=== PATIENT | male | born 1955 | race Caucasian/White ===

== ENCOUNTER 2016-04-17 12:14 | Outpatient (CLI) | payer OTHER ==
--- NOTE | 2016-04-17 13:35 | DIAGNOSTIC IMAGING REPORT ---
PROCEDURE: XR SHOULDER INJECTION (PRE MR) INDICATION: Right shoulder pain. Possible adhesive capsulitis. TECHNIQUE: The patient was advised of the usual risks and complications including infection, bleeding and allergy. Supine RPO position. Following sterile preparation and 1% lidocaine anesthetic, fluoroscopic guidance (2.0 minutes, 382.79 mGy) was utilized to place a 22-gauge spinal needle into the ventral right glenohumeral joint. A 10.1 mL solution (2.5 mL Isovue 200, 2.5 mL 1% lidocaine, 2.5 mL 0.5% Marcaine, 2.5 mL normal saline, 0.1 mL gadolinium) was infused. Subsequently, 2 mL 40 mg/mL Kenalog was infused and the needle was withdrawn. COMPARISON: Comparison is made to radiographs from [facility] on 03/30/2016. FINDINGS: Five AP views in neutral, internal and external rotation. Confirmation of intraarticular injection. There is mild to moderate degenerative changes of the right glenohumeral joint and right acromioclavicular joint. Findings suggest calcific tendonitis of the rotator cuff. Arthrogram is normal. No evidence of rotator cuff tear The patient tolerated the procedure reasonably well and was transferred to MRI in satisfactory condition with instructions to resume routine activity the following day, and to call for any untoward symptoms (increasing pain/swelling). IMPRESSION: 1. Successful fluoroscopically guided diagnostic/therapeutic injection of the right glenohumeral joint (pre MRI). 2. 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 3. 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 4. Negative arthrogram of the right shoulder. 5. MR arthrography is pending.
--- NOTE | 2016-04-19 17:59 | DIAGNOSTIC IMAGING REPORT ---
PROCEDURE: MR UPPER EXT JOINT W/CONT-RT INDICATION: ADHESIVE CAPSULITIS RT SHOULDER TECHNIQUE: Intraarticular contrast/gadolinium injected earlier in the day. PD, FAT-SAT PD, and FAT-SAT T1 sagittal oblique images. PD, FAT-SAT PD, and FAT-SAT T1 coronal oblique images. T1, FAT-SAT T1, and gradient axial images. COMPARISON: Comparison is made to conventional arthrogram earlier in the day and radiographs of the right shoulder from [facility] on 03/30/2016 FINDINGS: Mild to moderate intermittent motion requiring multiple repeat sequences. There is mild caudal angulation and degenerative spurring of type 1 acromion and moderate arthritic change of the right acromioclavicular joint, and these changes result in mild impingement. There are cystic changes of the posterior lateral humeral head (may represent incidental finding). There is no evidence of coracoid impingement (15 mm). There is abnormal signal, edema, and contrast extravasation into the caudal insertion of the teres minor tendon and muscle. The rest of the rotator cuff appears normal. There are moderate of degenerative changes of the right glenohumeral joint. Allowing for motion, there is no definite evidence of labral tear. Biceps tendon and glenohumeral ligaments appear normal. IMPRESSION: 1. Mild to moderate motion which partially limits study. 2. Mild caudal angulation of type 1 acromion and moderate arthritic change of the right acromioclavicular joint result in mild impingement. 3. Associated mild cystic impaction changes of the posterior lateral humeral head. 4. Normal appearance of the rotator cuff (although prior radiographs demonstrate calcific tendinosis). 5. Abnormal signal and contrast extravasation involving the posterior and distal insertion of the teres minor tendon and muscle. While etiology is not entirely clear, findings suggest capsular injury, tendon avulsion, or severe muscle strain. 6. Moderate degenerative changes of the right glenohumeral joint. 7. No definite labral tear (although study is limited due to motion).
== END 2016-04-17 23:00 ==
LOC: XR SRH 12:14
PROC: BP181ZZ Fluoroscopy of Right Shoulder using Low Osmolar Contrast (ICD-10-PCS; principal; 2016-04-17)
DX: M19.011 Primary osteoarthritis, right shoulder (principal); M75.31 Calcific tendinitis of right shoulder